=== PATIENT | female | born 1980 | race Caucasian/White ===

== ENCOUNTER 2016-09-03 20:22 | Emergency (ER) | payer OTHER ==
[2016-09-03 20:39] VITALS: BP 136/80
[2016-09-03] MEDS ORDERED: Bacitracin Oint 1 GM U/D Packet TOP ONE (20:56)
[2016-09-03] MEDS ORDERED: Amoxicillin/Clavulanate K 875-125 MG Tab PO ONE (20:56)
[2016-09-03] MEDS ORDERED: Diphtheria,Pertussis(Acell),Tetanus Vaccine 0.5 ML SDV IM ONE (20:57)
--- NOTE | 2016-09-03 21:06 | EDM.PDOC ---
ED HPI GENERAL MEDICAL PROBLEM - General Chief Complaint: Skin Complaint Stated Complaint: CUT KNUCKLE Time Seen by Provider: 09/03/16 20:40 Source of Information: Reports: Patient History Limitations: Reports: No Limitations - History of Present Illness INITIAL COMMENTS - FREE TEXT/NARRATIVE: Ed with complaint of cut to right 3rd knuckle. Reports using leather punch on saddle and slipped with it and cut across knuckle. Pulled flap back over cut and bleeding stopped. Tetnus greater than 10 years ago. No limitation n movement. 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: Reports: Other (See Below) Other OB/BYN History: 3 miscarriages Endocrine/Metabolic History: Reports: Hypothyroidism - Infectious Disease History Infectious Disease History: Reports: Chicken Pox - Past Surgical History HEENT Surgical History: Reports: Tonsillectomy Other HEENT Surgeries/Procedures: wisdom teeth removed GI Surgical History: Reports: Hernia Repair/Other Female Surgical History: Reports: Section Social & Family History - Family History Family Medical History: Noncontributory - Tobacco Use Smoking Status *Q: Former Smoker Used Tobacco, but Quit: Yes Month Tobacco Last Used: april, Second Hand Smoke Exposure: No - Caffeine Use Caffeine Use: Reports: Coffee, Soda - Recreational Drug Use Recreational Drug Use: No ED ROS GENERAL - Review of Systems Review Of Systems: ROS reveals no pertinent complaints other than HPI. ED EXAM, SKIN/RASH Exam: See Below Exam Limited By: No Limitations General Appearance: Alert, No Apparent Distress Eye Exam: Bilateral Eye: EOMI Ears: Normal External Exam Throat/Mouth: Normal Voice Respiratory/Chest: No Respiratory Distress Cardiovascular: Normal Peripheral Pulses, Regular Rate, Rhythm Extremities: Normal Range of Motion Neurological: Alert, Oriented Psychiatric: Normal Affect Skin: Warm, Dry Location, Skin: Other (7mm superficial arc laceration over right 3rd MIP. No bleeding. abrasion to 2nd MIP no bleeding. GOood ROM good strength with flexion extension of digits. ) Course - Vital Signs Text/Narrative:: wounds cleansed, dressed per nursing. Last Recorded V/S: Last Vital Signs Temp 99.3 F 09/03/16 20:31 Pulse 93 09/03/16 20:31 Resp 16 09/03/16 20:31 BP 136/80 09/03/16 20:31 Pulse Ox 100 09/03/16 20:31 - Orders/Labs/Meds Orders: Active Orders 24 hr Category Date Time Status Vaccines to be Administered [RC] PER UNIT ROUTINE Care 09/03/16 20:57 Active Meds: Medications Discontinued Medications Generic Name Dose Route Start Last Admin Trade Name Doris PRN Reason Stop Dose Admin Amoxicillin/Clavulanate Potassium 1 tab 09/03/16 20:56 09/03/16 21:12 Augmentin 875 Mg/125 Mg PO 09/03/16 20:57 1 tab ONETIME ONE Administration Bacitracin 1 dose 09/03/16 20:56 09/03/16 21:12 Bacitracin Oint 1 Gm TOP 09/03/16 20:57 1 dose ONETIME ONE Administration Diphtheria/Tetanus/Acell Pertussis 0.5 ml 09/03/16 20:57 09/03/16 21:08 Adacel IM 09/03/16 20:58 0.5 ml .ONCE ONE Administration Departure - Departure Time of Disposition: 20:59 Disposition: Home, Self-Care 01 Condition: Good Clinical Impression: Broken skin - Discharge Information Instructions: Nonsutured Laceration Care Forms: ED Department Discharge Additional Instructions: cleanse 3 times daily with soap and water cover with bandaide dressing follow up if redness , swelling, drainage or febrile augmentin 875 one twice daily for one week - My Orders Last 24 Hours: My Active Orders 09/03/16 20:57 Vaccines to be Administered [RC] PER UNIT ROUTINE - Assessment/Plan Last 24 Hours: My Active Orders 09/03/16 20:57 Vaccines to be Administered [RC] PER UNIT ROUTINE
== END 2016-09-03 21:21 | disposition home or self-care (01) ==
LOC: DL.ED 20:22
DX: S61.411A Laceration without foreign body of right hand, initial encounter (principal); E03.9 Hypothyroidism, unspecified; Z98.890 Other specified postprocedural states; Z87.891 Personal history of nicotine dependence; Z79.899 Other long term (current) drug therapy; Z88.8 Allergy status to other drugs, medicaments and biological substances; W45.8XXA Other foreign body or object entering through skin, initial encounter; Z23 Encounter for immunization
CPT/HCPCS: 90715; 99282; A9270